=== PATIENT | male | born 1985 | race Caucasian/White ===

== ENCOUNTER 2021-10-15 21:44 | Inpatient (IN) | payer OTHER ==
[2021-10-16] MEDS ORDERED: FAMOTIDINE 20 MG/50 ML IVPB 20 MG/50 ML MG IVPB ONE (01:04)
[2021-10-16] MEDS ORDERED: SODIUM CHLORIDE 1,000 ML IV STA (01:04)
[2021-10-16] MEDS ORDERED: FAMOTIDINE 10 MG/ML VIAL IVPB ONE (01:50)
[2021-10-16] MEDS ORDERED: ACETAMINOPHEN 1000 MG/100 ML BAG IVPB ONE (02:09)
[2021-10-16] MEDS ORDERED: ACETAMINOPHEN INJECTION 100 ML IVPB ONE ×3 (02:12→22:15)
[2021-10-16 02:14] LABS: BASO % 0.3 % (0-2.0); HEMOGLOBIN 12.7 GM/dL (11.7-16.9); LYMPH % 11.7 % (8-40); MCH 31.3 pg (25.7-33.7); MCHC 34.4 g/dl (32.0-35.9); MEAN CELL VOLUME 90.8 fl (80-96); MEAN PLT VOLUME 8.1 fl (7.5-11.1); MONO % 11.2 % (3.8-10.2); NEUT % 76.8 % (42.8-82.8); PLATELET COUNT 237 10^3/uL (134-434); RBC 4.07 M/mm3 (4.00-5.60); RDW 12.4 % (11.9-15.9); WHITE BLOOD COUNT 12.3 K/mm3 (4.0-10.0)
[2021-10-16 02:15] LABS: VENOUS BASE EXCESS 3.3 mmol/L (-2-2); VENOUS O2 SATURATION 54.4 % (70-80); VENOUS PCO2 44.7 mmHg (38-52); VENOUS PH 7.42 (7.310-7.410)
[2021-10-16 02:26] LABS: INR 1.36 (0.83-1.09); PROTHROMBIN TIME (PATIENT) 15.7 SEC (9.7-13.0)
[2021-10-16 02:28] LABS: ACTIVATED PTT 33.8 SECONDS (25.2-36.5)
[2021-10-16 02:36] LABS: CALCIUM 8.5 mg/dL (8.5-10.1)
[2021-10-16 02:37] LABS: ALBUMIN 2.8 g/dl (3.4-5.0); BLOOD UREA NITROGEN 14.3 mg/dL (7-18)
[2021-10-16 02:40] LABS: CREATININE 0.7 mg/dL (0.55-1.3)
[2021-10-16 02:41] LABS: BILIRUBIN,TOTAL 1.1 mg/dL (0.2-1); TOT PROT 7.2 g/dl (6.4-8.2)
[2021-10-16] MEDS ORDERED: PIPERACILLIN/TAZOB 3.375 GM 3.375 GM in DEXTROSE 5%-WATER - 50 ML IVPB ONE (03:11)
[2021-10-16 03:59] LABS: EPI CELLS 6 /uL (0-25.1); HYALINE CASTS 2 /uL (0-3.1); PH,URINE 5.5 (5.0-8.0); URINE APPEARANCE CLEAR; URINE BILIRUBIN 2+ (NEGATIVE); URINE COLOR ORANGE; URINE GLUCOSE (UA) 3+ (NEGATIVE); URINE KETONE 3+ (NEGATIVE); URINE LEUK ESTERASE NEGATIVE (NEGATIVE); URINE NITRITE POSITIVE (NEGATIVE); URINE PROTEIN 2+ (NEGATIVE); URINE RBC 10 /uL (0-23.9); URINE WBC 14 /uL (0-25.8)
[2021-10-16] MEDS ORDERED: PIPERACILLIN/TAZOB 3.375 GM 3.375 GM/50 ML BAG IVPB ONE (04:30)
[2021-10-16] MEDS ORDERED: ONDANSETRON 4 MG/2 ML VIAL IVPUSH PRN (04:33)
[2021-10-16] MEDS: SODIUM CHLORIDE 1,000 ML IV SCH (04:51)
[2021-10-16] MEDS ORDERED: INSULIN SLIDING SCALE (NOVOLOG) 1 VIAL SQ SCH (07:00)
[2021-10-16 07:29] LABS: BASO % 0.1 % (0-2.0); EOS % 0.2 % (0-4.5); HEMATOCRIT 35.1 % (35.4-49); HEMOGLOBIN 12.1 GM/dL (11.7-16.9); LYMPH % 10.8 % (8-40); MCH 31.3 pg (25.7-33.7); MCHC 34.3 g/dl (32.0-35.9); MEAN CELL VOLUME 91.2 fl (80-96); MEAN PLT VOLUME 8.5 fl (7.5-11.1); MONO % 10.7 % (3.8-10.2); NEUT % 78.2 % (42.8-82.8); PLATELET COUNT 218 10^3/uL (134-434); RBC 3.85 M/mm3 (4.00-5.60); RDW 12.6 % (11.9-15.9); WHITE BLOOD COUNT 11.2 K/mm3 (4.0-10.0)
[2021-10-16] MEDS: INSULIN SLIDING SCALE (NOVOLOG) 1 VIAL SQ SCH ×5 (07:29→23:58)
[2021-10-16 07:51] LABS: CALCIUM 8.3 mg/dL (8.5-10.1)
[2021-10-16 07:52] LABS: ALBUMIN 2.6 g/dl (3.4-5.0); BLOOD UREA NITROGEN 12.9 mg/dL (7-18); MAGNESIUM 2.2 mg/dL (1.8-2.4)
[2021-10-16 07:55] LABS: CREATININE 0.6 mg/dL (0.55-1.3); PHOSPHOROUS 2.9 mg/dL (2.5-4.9)
[2021-10-16 07:57] LABS: BILIRUBIN,TOTAL 1.3 mg/dL (0.2-1); TOT PROT 6.7 g/dl (6.4-8.2)
[2021-10-16 08:29] LABS: URINE BACTERIA 6.1 /uL (0-1359)
[2021-10-16] MEDS ORDERED: CEFTRIAXONE 2 GM/100 ML BAG IVPB ONE (09:25)
[2021-10-16] MEDS: CEFTRIAXONE 2 GM in DEXTROSE 5%-WATER 2 GM/100 ML BAG IVPB SCH (09:30)
[2021-10-16] MEDS: ACETAMINOPHEN 1000 MG/100 ML BAG IVPB PRN ×2 (15:22→22:30)
[2021-10-17 01:20] VITALS: BMI 22.0
[2021-10-17] MEDS: SODIUM CHLORIDE 1,000 ML IV SCH ×2 (01:23→05:59)
[2021-10-17] MEDS: INSULIN SLIDING SCALE (NOVOLOG) 1 VIAL SQ SCH ×4 (07:13→22:52)
[2021-10-17 08:02] LABS: BASO % 0.1 % (0-2.0); EOS % 0.1 % (0-4.5); HEMOGLOBIN 12.1 GM/dL (11.7-16.9); LYMPH % 9.1 % (8-40); MCH 31.5 pg (25.7-33.7); MCHC 34.4 g/dl (32.0-35.9); MEAN CELL VOLUME 91.5 fl (80-96); MONO % 8.4 % (3.8-10.2); NEUT % 82.3 % (42.8-82.8); PLATELET COUNT 246 10^3/uL (134-434); RBC 3.83 M/mm3 (4.00-5.60); RDW 12.6 % (11.9-15.9); WHITE BLOOD COUNT 13.1 K/mm3 (4.0-10.0)
[2021-10-17 08:21] LABS: ALBUMIN 2.3 g/dl (3.4-5.0); CALCIUM 8.3 mg/dL (8.5-10.1)
[2021-10-17 08:22] LABS: BLOOD UREA NITROGEN 11.5 mg/dL (7-18)
[2021-10-17 08:25] LABS: CREATININE 0.5 mg/dL (0.55-1.3); PHOSPHOROUS 2.9 mg/dL (2.5-4.9)
[2021-10-17 08:26] LABS: BILIRUBIN,TOTAL 1.7 mg/dL (0.2-1); TOT PROT 6.5 g/dl (6.4-8.2)
[2021-10-17] MEDS ORDERED: DEXTROSE 5%-WATER 100 ML IVPB ONE (09:38)
[2021-10-17] MEDS ORDERED: FENTANYL CITRATE/PF 50 MCG/ML VIAL ONE ×2 (10:12→11:01)
[2021-10-17] MEDS ORDERED: MIDAZOLAM HCL 2 MG/2 ML SINGLE DOSE VIAL ONE (11:01)
[2021-10-17] MEDS: CEFTRIAXONE 2 GM in DEXTROSE 5%-WATER 2 GM/100 ML BAG IVPB SCH (11:12)
[2021-10-17] MEDS: MIDAZOLAM HCL 2 MG/2 ML SINGLE DOSE VIAL IVPUSH ONE ×4 (11:15→12:21)
[2021-10-17] MEDS ORDERED: PIPERACILLIN/TAZOB 3.375 GM 3.375 GM in DEXTROSE 5%-WATER - 50 ML IVPB SCH ×2 (11:15→11:30)
[2021-10-17] MEDS: FENTANYL CITRATE/PF 50 MCG/ML VIAL IVPUSH ONE ×4 (11:15→12:21)
[2021-10-17] MEDS ORDERED: SODIUM CHLORIDE 500 ML IV ONE (12:00)
[2021-10-17] MEDS ORDERED: DEXTROSE 5%-WATER - 50 ML IVPB ONE ×2 (12:22→16:42)
[2021-10-17] MEDS ORDERED: PIPERACILLIN/TAZOBACTAM 3.375 GM VIAL IVPB ONE ×2 (12:22→16:42)
[2021-10-17] MEDS: PIPERACILLIN/TAZOB 3.375 GM 3.375 GM in DEXTROSE 5%-WATER - 50 ML IVPB SCH ×2 (13:07→18:02)
[2021-10-18] MEDS ORDERED: ACETAMINOPHEN 1000 MG/100 ML BAG IVPB PRN (00:01)
[2021-10-18] MEDS ORDERED: PIPERACILLIN/TAZOBACTAM 3.375 GM VIAL IVPB ONE ×3 (01:02→16:21)
[2021-10-18] MEDS ORDERED: DEXTROSE 5%-WATER - 50 ML IVPB ONE ×3 (01:02→16:21)
[2021-10-18] MEDS: PIPERACILLIN/TAZOB 3.375 GM 3.375 GM in DEXTROSE 5%-WATER - 50 ML IVPB SCH ×3 (02:38→17:01)
[2021-10-18] MEDS: INSULIN SLIDING SCALE (NOVOLOG) 1 VIAL SQ SCH ×4 (06:09→21:54)
[2021-10-18 08:17] LABS: BASO % 0.3 % (0-2.0); EOS % 0.4 % (0-4.5); HEMOGLOBIN 12.6 GM/dL (11.7-16.9); LYMPH % 8.9 % (8-40); MCH 31.1 pg (25.7-33.7); MEAN CELL VOLUME 91.6 fl (80-96); MEAN PLT VOLUME 8.1 fl (7.5-11.1); MONO % 8.7 % (3.8-10.2); NEUT % 81.7 % (42.8-82.8); PLATELET COUNT 293 10^3/uL (134-434); RBC 4.04 M/mm3 (4.00-5.60); RDW 12.8 % (11.9-15.9); WHITE BLOOD COUNT 9.3 K/mm3 (4.0-10.0)
[2021-10-18 08:41] LABS: CALCIUM 8.4 mg/dL (8.5-10.1)
[2021-10-18 08:42] LABS: ALBUMIN 2.1 g/dl (3.4-5.0); BLOOD UREA NITROGEN 5.6 mg/dL (7-18); MAGNESIUM 2.2 mg/dL (1.8-2.4)
[2021-10-18 08:45] LABS: CREATININE 0.6 mg/dL (0.55-1.3); PHOSPHOROUS 2.3 mg/dL (2.5-4.9)
[2021-10-18 08:46] LABS: TOT PROT 6.3 g/dl (6.4-8.2)
[2021-10-18] MEDS: SODIUM CHLORIDE 1,000 ML IV SCH (09:21)
[2021-10-19] MEDS ORDERED: PIPERACILLIN/TAZOBACTAM 3.375 GM VIAL IVPB ONE ×3 (02:34→15:21)
[2021-10-19] MEDS ORDERED: DEXTROSE 5%-WATER - 50 ML IVPB ONE ×3 (02:34→15:22)
[2021-10-19] MEDS: PIPERACILLIN/TAZOB 3.375 GM 3.375 GM in DEXTROSE 5%-WATER - 50 ML IVPB SCH ×3 (02:43→17:22)
[2021-10-19] MEDS: SODIUM CHLORIDE 1,000 ML IV SCH ×2 (02:43→13:39)
[2021-10-19] MEDS ORDERED: POTASSIUM PHOSPHATE 30 MM in SODIUM CHLORIDE 500 ML IVPB ONE (05:00)
[2021-10-19] MEDS: INSULIN SLIDING SCALE (NOVOLOG) 1 VIAL SQ SCH ×4 (06:02→21:46)
[2021-10-19 09:12] LABS: BASO % 0.4 % (0-2.0); EOS % 0.4 % (0-4.5); HEMATOCRIT 35.3 % (35.4-49); HEMOGLOBIN 12.2 GM/dL (11.7-16.9); LYMPH % 12.8 % (8-40); MCH 31.4 pg (25.7-33.7); MCHC 34.5 g/dl (32.0-35.9); MEAN CELL VOLUME 90.9 fl (80-96); MEAN PLT VOLUME 7.5 fl (7.5-11.1); MONO % 9.9 % (3.8-10.2); NEUT % 76.5 % (42.8-82.8); PLATELET COUNT 300 10^3/uL (134-434); RBC 3.88 M/mm3 (4.00-5.60); RDW 12.9 % (11.9-15.9); WHITE BLOOD COUNT 8.9 K/mm3 (4.0-10.0)
[2021-10-19 09:43] LABS: ALBUMIN 2.1 g/dl (3.4-5.0); BLOOD UREA NITROGEN 4.6 mg/dL (7-18); CALCIUM 8.4 mg/dL (8.5-10.1); MAGNESIUM 2.3 mg/dL (1.8-2.4)
[2021-10-19 09:45] LABS: PHOSPHOROUS 3.6 mg/dL (2.5-4.9); TOT PROT 6.3 g/dl (6.4-8.2)
[2021-10-19 09:46] LABS: BILIRUBIN,TOTAL 0.7 mg/dL (0.2-1); CREATININE 0.7 mg/dL (0.55-1.3)
[2021-10-19] MEDS: PANTOPRAZOLE 40 MG TABLET PO SCH (13:38)
[2021-10-19] MEDS: ENOXAPARIN NA (PORCINE) 40 MG/0.4 ML DISP.SYRIN SQ SCH (13:38)
[2021-10-19] MEDS ORDERED: INSULIN (NOVOLOG) ASPART 100 UNITS/ML 10ML VIAL ONE (20:34)
[2021-10-19] MEDS: INSULIN (LEVEMIR) 100 UNITS/ML UNITS SQ SCH (21:45)
[2021-10-20] MEDS ORDERED: DEXTROSE 5%-WATER - 50 ML IVPB ONE ×3 (01:16→16:17)
[2021-10-20] MEDS ORDERED: PIPERACILLIN/TAZOBACTAM 3.375 GM VIAL IVPB ONE ×3 (01:16→16:17)
[2021-10-20] MEDS: PIPERACILLIN/TAZOB 3.375 GM 3.375 GM in DEXTROSE 5%-WATER - 50 ML IVPB SCH ×3 (01:57→17:52)
[2021-10-20] MEDS: SODIUM CHLORIDE 1,000 ML IV SCH (06:40)
[2021-10-20] MEDS: INSULIN SLIDING SCALE (NOVOLOG) 1 VIAL SQ SCH ×3 (06:42→17:18)
[2021-10-20 09:02] LABS: BASO % 0.4 % (0-2.0); EOS % 0.7 % (0-4.5); HEMATOCRIT 36.9 % (35.4-49); HEMOGLOBIN 12.6 GM/dL (11.7-16.9); LYMPH % 15.7 % (8-40); MCH 31.1 pg (25.7-33.7); MCHC 34.2 g/dl (32.0-35.9); MEAN PLT VOLUME 7.6 fl (7.5-11.1); NEUT % 75.2 % (42.8-82.8); PLATELET COUNT 335 10^3/uL (134-434); RBC 4.06 M/mm3 (4.00-5.60); RDW 12.8 % (11.9-15.9); WHITE BLOOD COUNT 7.5 K/mm3 (4.0-10.0)
[2021-10-20 09:47] LABS: BLOOD UREA NITROGEN 3.4 mg/dL (7-18); CALCIUM 8.4 mg/dL (8.5-10.1)
[2021-10-20 09:48] LABS: ALBUMIN 2.2 g/dl (3.4-5.0); MAGNESIUM 2.1 mg/dL (1.8-2.4)
[2021-10-20 09:52] LABS: BILIRUBIN,TOTAL 1.1 mg/dL (0.2-1); TOT PROT 6.5 g/dl (6.4-8.2)
[2021-10-20 10:00] LABS: CREATININE 0.5 mg/dL (0.55-1.3)
[2021-10-20] MEDS ORDERED: INSULIN (NOVOLOG) ASPART 100 UNITS/ML 10ML VIAL ONE (10:12)
[2021-10-20] MEDS: PANTOPRAZOLE 40 MG TABLET PO SCH (10:24)
[2021-10-20] MEDS: ENOXAPARIN NA (PORCINE) 40 MG/0.4 ML DISP.SYRIN SQ SCH (10:24)
[2021-10-20] MEDS: INSULIN (LEVEMIR) 100 UNITS/ML UNITS SQ SCH (10:24)
[2021-10-20 14:51] VITALS: BP 94/63; PULSE 82; TEMP 98.2
== END 2021-10-20 21:12 | disposition home or self-care (01) ==
LOC: JER 21:44 → JERBED 10-16 03:20 → J4W 10-16 22:36 → J7W 10-16 23:17
PROVIDERS: ADMIT Hospitalist; ATTEND Internal Medicine
PROC: 0F9230Z Drainage of Left Lobe Liver with Drainage Device, Percutaneous Approach (ICD-10-PCS; principal; 2021-10-17)
DX: K82.A2 Perforation of gallbladder in cholecystitis (principal); K75.0 Abscess of liver; E87.3 Alkalosis; E11.65 Type 2 diabetes mellitus with hyperglycemia; R82.4 Acetonuria; K80.10 Calculus of gallbladder with chronic cholecystitis without obstruction; D72.829 Elevated white blood cell count, unspecified
CPT/HCPCS: 36415; 49406; 71046-TC-FY; 74178-TC; 74181-TC; 76705-TC; 80053; 81003; 82010; 82803; 82962; 83036; 83690; 83735; 84100; 84484; 85025; 85610; 85730; 87040; 87070; 87075; 87102; 87116; 87186; 87205; 87206; 87210; 88108; 88305-TC; 93005; 93010; 99285-25; C9803-CS; Q9967; U0003; U0005